=== PATIENT | male | born 1930 | race Caucasian/White ===

== ENCOUNTER 2020-01-14 15:04 | Inpatient (IN) | payer OTHER ==
[2020-01-14] VITALS (7 sets, daily range): BP systolic 100–125; BP diastolic 64–89
[~2020-01-14] VITALS: Ht 170.1 cm; Wt 54.0 kg
[2020-01-14 15:48] LABS: MEAN CELL VOLUME 77.6 fl (80.0-94.0); MEAN CORPUSCULAR HGB 24.1 pg (27.0-31.0); MEAN PLATELET VOLUME 9.5 fl (9.6-12.3); PLATELET COUNT AUTOMATED 429 10*3/uL (130-400); RED BLOOD COUNT 7.98 10*6/uL (4.50-5.90); RED CELL DISTRI WIDTH 24.5 % (0-14.5); WHITE BLOOD COUNT 22.9 10*3/uL (4.8-10.8)
[2020-01-14 15:51] LABS: HEMATOCRIT 61.9 % (42.0-52.0)
[2020-01-14 15:58] LABS: ACT PARTIAL THROMBO TIME 32.8 SECONDS (20.0-32.1); INTERNATIONAL NORM RATIO 1.6 (2.0-3.5)
[2020-01-14 16:04] LABS: ALKALINE PHOSPHATASE 106 U/L (45-117); BUN 11 mg/dl (7-24); CHLORIDE 106 mmol/L (98-107); LIPASE 25 U/L (73-393); POTASSIUM 4.3 mmol/L (3.5-5.1); SGOT/AST 14 IU/L (3-35); SGPT/ALT 14 U/L (12-78); SODIUM 137 mmol/L (136-145); TOTAL PROTEIN 7.1 gm/dL (6.4-8.2)
[2020-01-14 16:05] LABS: TROPONIN I < 0.015 ng/ml (<0.045)
[2020-01-14 16:11] LABS: ATYPICAL LYMPHS 1 % (0-0); BASOPHILS 2 % (0-1); PLATELET SUFFICIENCY NORMAL (NORMAL); TOTAL CELLS COUNTED 100 #CELLS
[2020-01-14 16:12] LABS: POLYCHROMASIA MODERATE
--- NOTE | 2020-01-14 16:22 | NUR ---
DAUGHTER STATES HE "WONT TAKE HIS THYROID OR BP MEDS SINCE JUNE"
[2020-01-14 17:14] LABS: BILIRUBIN 1+ (NEGATIVE); BLOOD 1+ (NEGATIVE); CLARITY SL CLOUDY (CLEAR); COLOR ORANGE (YELLOW); GLUCOSE NEGATIVE (NEGATIVE); KETONE TRACE (NEGATIVE); LEUKO ESTERASE NEGATIVE (NEGATIVE); NITRITE NEGATIVE (NEGATIVE)
[2020-01-14 17:20] LABS: BACTERIA 1+; EPITHELIAL CELLS 0-2
--- NOTE | 2020-01-14 19:02 | NUR ---
A 89, admitted to , under the services of JAYLENE Avery DO with a diagnosis of ASPIRATION PNEUMONIA SEVERE SEPSIS. Chief complaint is ASPIRATION PNEUMONIA AND SEVERE SEPSIS. Patient arrived via bed from [place]. Monitor applied. Initial assessment completed. Vital signs taken and recorded. JAYLENE AVERY DO notified of admission to the unit. Orders received. See assessment for past medical history, medications and allergies. Patient and/or family oriented to unit. [facility] Clothing/patient valuable form completed. MATT STEWARD
--- NOTE | 2020-01-14 20:42 | NUR ---
20:00 ATTEMPTED TO INSTRUCT PATIENT ON USE OF FLUTTER VALVE. PT UNABLE TO COMPREHEND HOW TO PERFORM TH TECHNIQUE. FLUTTER LEFT AT BEDSIDE. WILL ATTEMPT AT A LATER TIME. RN AWARE.
--- NOTE | 2020-01-14 21:01 | NUR ---
DR DOVER NOTIFIED OF CRITICAL KACTIC ACID OF 3.3. ALSO NOTIFIED OF HR AFOB ON THE MONITOR ANYWHERE FROM 100-150. STATES HE WILL BE UP TO SEE THE PATIENT.
--- NOTE | 2020-01-14 21:02 | NUR ---
SPOKE WITH DAUGHTER IN LAW, YOLIS, REGARDING HOME MEDICATIONS. DENIES THAT THE PATIENT HAS ANY HISTORY OF AFIB, OR MEDICATIONS FOR HR REGULATION OR BLOOD THINNERS. STATES THE ONLY MEDICATION HE HAS TAKEN IS SYNTHROID BUT HE HASN'T TAKE THAT FOR A YEAR AND A HALF. STATES THAT SHE FORGOT TO MENTION TO THE DOCTOR THAT HE HAS A HISTORY OF MESOTHELIOMA D/T WORKING IN THE [employer] & SKIN CANCER ON HIS FACE.
--- NOTE | 2020-01-14 22:28 | NUR ---
NEW PATIENT CONSULT CALLED INTO ANSWERING SERVICE FOR DR GODOY. AWAITING CALL BACK.
--- NOTE | 2020-01-14 22:33 | NUR ---
SPOKE WITH DR BARTLETT, STATES TO START CARDIZEM DRIP IF PATIENT MAINTAINS RATE OVER 120. HR 104 PER CM AT THIS TIME. STATES TO GIVE 10MG IV, THE 5MG/HR FOLLOWING THAT. WILL CONTINUE TO MONITOR PATIENT AND ADDRESS NEEDS THEY ARISE. WILL HOLD OFF ON CARDIZEM FOR NOW. WILL MONITOR HEART RATE.
[2020-01-15] VITALS (7 sets, daily range): BP systolic 110–138; BP diastolic 54–104
--- NOTE | 2020-01-15 01:56 | NUR ---
10 MG CARDIZEM ADMINISTERED, WILL MONITOR. HR IN 80'S PER CM AT THIS TIME.
--- NOTE | 2020-01-15 02:20 | NUR ---
24 HOUR CHART CHECK COMPLETE.
[2020-01-15 06:09] LABS: HEMATOCRIT 58.2 % (42.0-52.0); MEAN CELL VOLUME 77.4 fl (80.0-94.0); MEAN CORPUSCULAR HGB 23.7 pg (27.0-31.0); MEAN CORPUSCULAR HGB CONC 30.6 g/dl (33.0-37.0); PLATELET COUNT AUTOMATED 370 10*3/uL (130-400); RED BLOOD COUNT 7.52 10*6/uL (4.50-5.90); RED CELL DISTRI WIDTH 23.9 % (0-14.5); WHITE BLOOD COUNT 33.2 10*3/uL (4.8-10.8)
[2020-01-15 06:27] LABS: ALBUMIN 2.4 gm/dl (3.1-4.5); ALKALINE PHOSPHATASE 80 U/L (45-117); BUN 17 mg/dl (7-24); CHLORIDE 110 mmol/L (98-107); CHOLESTEROL 87 mg/dL (<200); CREATININE 1.16 mg/dL (0.70-1.30); FREE T4 0.94 ng/dl (0.76-1.46); HDL CHOLESTEROL 45 mg/dl (40-60); LDL CHOLESTEROL 32 mg/dL (9-159); POTASSIUM 4.3 mmol/L (3.5-5.1); SGOT/AST 15 IU/L (3-35); SGPT/ALT 15 U/L (12-78); SODIUM 140 mmol/L (136-145); TRIGLYCERIDES 52 mg/dl (<150); VLDL CHOLESTEROL 10 mg/dL (6-40)
[2020-01-15 06:36] LABS: PLATELET SUFFICIENCY NORMAL (NORMAL); POLYCHROMASIA SLIGHT; TOTAL CELLS COUNTED 100 #CELLS
[2020-01-15 06:37] LABS: MICROCYTOSIS SLIGHT
[2020-01-15 06:54] LABS: ACT PARTIAL THROMBO TIME 36.6 SECONDS (20.0-32.1); INTERNATIONAL NORM RATIO 1.8 (2.0-3.5)
[2020-01-15 07:39] LABS: VITAMIN D, 25-HYDROXY 18.9 ng/mL (30-100)
--- NOTE | 2020-01-15 07:58 | NUR ---
OT NOTE Occupational therapy order and nursing screen received. Will follow up with patient for completion of an OT evaluation. Leeann Mccarty, OTR/L
--- NOTE | 2020-01-15 07:58 | NUR ---
PHYSICAL THERAPY Screen and orders recieved, will follow. Thank you. Abraham Chester SPT Emilee Lindquist PT
--- NOTE | 2020-01-15 09:00 | NUR ---
PHYSICAL THERAPY Physical Therapy evaluation completed on 4th floor with full evaluation to follow. Recommend physical therapy per plan of care and SNF upon discharge. Thank you for this referral. Abraham Chester SPT Emilee Lindquist PT
--- NOTE | 2020-01-15 09:04 | NUR ---
SPEECH PATHOLOGY Orders for evaluation received and chart review completed. Clinician arrived in patient's room to attempt assessment however patient was found to be wheezing, confused and unable to follow commands. His nurse reported that his pulse ox was only in the 80's at this time and he was to be placed on oxygen. Due to current medical status, swallowing assessment was not able to be completed at this time. Will attempt evaluation at a later time. His nurse was informed and verbalized understanding and agreement. Thank you for this referral. KATELYN DELAROSA MSCCC-ELEVATOR WORKER
--- NOTE | 2020-01-15 09:05 | NUR ---
Occupational Therapy evaluation completed on four with full evaluation to follow. Recommend occupational therapy per plan of care and SNF upon discharge. Thank you for this referral. Leeann Mccarty OTR/L
[2020-01-15 09:15] LABS: RETICULOCYTE % 0.95 % (0.50-2.50)
--- NOTE | 2020-01-15 09:17 | NUR ---
TARA MERIDA [id number] Please refer to the physician's history and physical for past medical history, comorbid conditions, and allergies. Diagnosis: SEVERE SEPSIS,ASPIRATION PNEMONIA Ore Score: 10,HIGH RISK WOUND DESCRIPTIONS: Wound Number: 1 Location of the wound: left nares Type of wound: scab Thickness: Full Size: 0.5cm x 0.5cm x <0.1cm Tunneling: none Undermining: none Sinus Tract: none Presence of Exudate: none Amount: None Color: Brown Odor: None Periwound Skin Appearance: Erythema Wound edges: approximated Pain (associated with wound): denied at time of assessment How does patient state this happened? patient unsure how this happened. Wound Number: 2, 3 and 4 Location of the wound: left upper arm Thickness: Full Size: 4.1cm x 2.1cm x 0.1cm Tunneling: none Undermining: none Sinus Tract: none Presence of Exudate: Serous Amount: Light Color: Red, Brown Odor: None Periwound Skin Appearance: Erythema Wound edges: approximated Pain (associated with wound): denied at time of assessment How does patient state this happened? patient unsure how this happened. Wound Number: 5 Location of the wound: right distal arm Type of wound: scab Thickness: Full Size: 2.5cm x 0.8cm x <0.1cm Tunneling: none Undermining: none Sinus Tract: none Presence of Exudate:none Amount: None Color: Red, yellow, brown Odor: None Periwound Skin Appearance: Erythema Wound edges: approximated Pain (associated with wound): denied at time of assessment How does patient state this happened? patient unsure how this happened. Wound Number: 6 Location of the wound: right medial elbow Thickness: Full Size: 1.7cm x 1.2cm x 0.1cm Tunneling: none Undermining: none Sinus Tract: none Presence of Exudate: Serous Amount: Light Color: Red, brown, yellow Odor: None Periwound Skin Appearance: Erythema Wound edges: approximated Pain (associated with wound): denied at time of assessment How does patient state this happened? patient unsure how this happened. Wound Number: 7 Location of the wound: right outter elbow Thickness: Full Size: 0.8cm x 0.7cm x 0.1cm Tunneling: none Undermining: none Sinus Tract: none Presence of Exudate: Serous Amount: Light Color: Red, Brown Odor: None Periwound Skin Appearance: Erythema Wound edges: approximated Pain (associated with wound): denied at time of assessment How does patient state this happened? patient unsure how this happened Wound Number: 8 Location of the wound: coccyx Type of wound: stage 1 Thickness: Size: 7cm x 7cm x <0.1cm Tunneling: none Undermining: none Sinus Tract: none Presence of Exudate: none Amount: None Color: Red Odor: None Periwound Skin Appearance: Erythema Wound edges: closed Pain (associated with wound): denied at time of assessment How does patient state this happened? patient unsure how this happened. Surface the patient is resting on: Isoflex SKIN PREVENTION RECOMMENDATION: 1. Pressure redistribution support surface as appropriate 2. Elevate heels 3. Remove boots/TEDS every shift and reapply 4. Head of bed 30 degrees as tolerated 5. Assess nutrition and hydration 6. Manage moisture 7. Avoid the use of containment devices while in bed 8. Use absorptive products on surfaces limit layers of linens on bed 9. Turn and reposition every 1-2 hours in bed and every 1 hour in chair as tolerated 10. Weight shifts every 15 minutes while up in chair 11. Offloading with pillows or device to keep heels elevated off bed 12. Monitor skin at least every shift 13. Inspect under medical devices twice a day WOUND TREATMENT RECOMMENDATIONS: Full thickness guidelines to left upper arm, right arm distal, right medial elbow, right outter elbow: Cleanse with nss apply sureprep allow to dry and apply therahoney to wound bed and cover with optifoam gentle. Change every 2 days and prn soiling. Left nare apply sureprep and allow to dry and leave open to air. Stage 1 guidelines to coccyx: Cleanse with nss apply sureprep allow to dry and cover with optifoam gentle every 2 days and prn soiling. Heel raiser pro boots while in bed. Wheel chair cushion when out of bed.
--- NOTE | 2020-01-15 09:43 | NUR ---
DR. SPEAR AWARE OF CONSULT.
[2020-01-15 12:10] LABS: ABG BASE EXCESS -3.2 mmol/L (-2.0-2.0); ARTERIAL BLOOD GAS PH 7.417 (7.35-7.45)
--- NOTE | 2020-01-15 12:46 | NUR ---
FOUNDRY MELT SUPERVISOR REACHED OUT TO THE PATIENTS DAUGHTER IN LAW. PATIENTS DAUGHTER IN LAW WAS VERY FORTH COMING WITH ANSWERS TO ALL QUESTIONS THIS FOUNDRY MELT SUPERVISOR ASKED. PER DAUGHTER IN LAW THE LAST COUPLE OF WEEKS THE PATIENT HAS BEEN UNSTEADY ON HIS FEET. SHE STATED THAT THE PATIENT HAS FALLEN INTO THE KEEN AND RECIEVED BRUSING ON HIS ARMS. SHE STATED THEY WERE WALKING TOGETHER AND THE PATIENT STARTED TO FALL, SHE WENT TO GRAB HIM TO PREVENT HIM FROM FALLING AND HE RECEIVED SKIN TEARS ON HIS ONE ARM. THE DAUGHTER IN LAW STATED THE PATIENT DOES NOT HAVE A PCP AT THIS TIME. HE HAS NOT BEEN SEEN BY A PCP SINCE BEFORE DECEMBER 2018. THE PATIENTS DECEMBER 2018 AND THE PATIENT REFUSED TO TAKE HIS ONLY MEDICATION FOR HIS THYROID. THE DAUGHTER IN LAW STATED THE PATIENT HAS A SINGLE BED LOWERED TO THE GROUND TO PREVENT ROLLING OUT OF THE BED. SHE STATED THE PATIENT DOES WELL WITH GETTING UP AND OUT OF THE BED. HE DOES MAKE HIS OWN BED EVERY MORNING. THE DAUGHTER IN LAW STATED SHE DOES TRY TO GET THE PATIENT TO EAT 2 TO 3 TIMES A DAY, BUT HE HAS NOT BEEN WANTING TO EAT LATELY. THE DAUGHTER IN LAW STATED UPON THE PATIENTS RETURN HOME, THEY WOULD JUST BLEND HIS FOOD FOR HIM TO MAKE IT EASIER ON HIM. THE PATIENT DOES HAVE ACCESS TO A WALKER,CANE, WHEELCHAIR, AND SHOWER CHAIR. HOWEVER, THE PATIENT REFUSES TO USE ANY OF THEM. PER THE DAUGHTER IN LAW SHE DOES STAND OUT SIDE OF THE SHOWER AND WAITS FOR THE PATIENT TO FINISH BATHING TO PREVENT HIM FROM FALLING. THE DAUGHTER STATED SHE WAS HOPING TO GET THE PATIENT CONNECTED TO A PCP HER IN [place]. FOUNDRY MELT SUPERVISOR EXPLAINED THE [facility]. SHE WAS RECEPTIVE AND STATED IT WOULD BE FINE TO MAKE AN APPOINTMENT, SHE WOULD PREFER AFTERNOONS BUT WOULD MAKE ANYTHING WORK. FOUNDRY MELT SUPERVISOR ASKED IF THEY WOULD BE RECEPTIVE TO SNF VS HOME HEALTH, THE DAUGHTER IN LAW STATED [facility] WOULD BE FINE. FOUNDRY MELT SUPERVISOR NOTIFIED FEE CLERK REYMUNDO.
--- NOTE | 2020-01-15 12:52 | NUR ---
Dr. Gaston notified of wound care recommendtions.
--- NOTE | 2020-01-15 14:27 | NUR ---
SPEECH PATHOLOGY Evaluation attempted again this pm. Clinician consulted with patient's admitting nurse, who recommended to hold off on evalation of swallowing at this time due to patient's medical status. Will attempt again tomorrow as appropriate. Thank you for this referral. KATELYN DELAROSA MSCCC-RAIL SIGNAL MECHANIC
--- NOTE | 2020-01-15 20:20 | NUR ---
ASSUMED CARE OF PATIENT. PATIENT IS CONFUSED AND ORIENTED TO SELF. ASSESSMENT IS COMPLETE WITH NO S/S OF DISTRESS NOTED AT THIS TIME. PATIENT IN GERICHAIR. CALL LIGHT IS WITHIN REACH. WILL CONTINUE TO MONITOR, SEE INTERVENTIONS.
--- NOTE | 2020-01-15 22:30 | NUR ---
PATIENT ASSISTED FROM GERICHAIR TO BED. BED IS LOW, LOCKED, ALARMED, AND CALL LIGHT IS WITHIN REACH. WILL CONTNIUE TO MONITOR.
[2020-01-16] VITALS: BP 159/81
--- NOTE | 2020-01-16 | NUR ---
ATTEMPTED SUCTION ON PATIENT, THICK GREEN/WHITE EXPECTORANT OBTAINED FROM SUCTIONING. BED IS LOW, LOCKED, ALARMED, AND CALL LIGHT IS WITHIN REACH. WILL CONTINUE TO MONITOR.
--- NOTE | 2020-01-16 01:35 | NUR ---
PATIENT PLACED IN GERICHAIR AT THIS TIME. CALL LIGHT IS WITHIN REACH.
--- NOTE | 2020-01-16 03:10 | NUR ---
PATIENT ASSISTED BACK TO BED. BED IS LOW, LOCKED, ALARMED, AND CALL LIGHT IS WITHIN REACH. WILL COTNIUE TO MONITOR.
--- NOTE | 2020-01-16 03:11 | NUR ---
BED BATH PROVIDED. PATIENT TOLERATED WELL. BED IS LOW, LOCKED, ALARMED, AND CALL LIGHT IS WITHIN REACH.
--- NOTE | 2020-01-16 03:28 | NUR ---
CHART CHECK COMPLETE.
[2020-01-16 06:00] LABS: MEAN CELL VOLUME 77.8 fl (80.0-94.0); MEAN CORPUSCULAR HGB CONC 30.9 g/dl (33.0-37.0); PLATELET COUNT AUTOMATED 424 10*3/uL (130-400); RED BLOOD COUNT 7.78 10*6/uL (4.50-5.90); RED CELL DISTRI WIDTH 24.4 % (0-14.5); WHITE BLOOD COUNT 31.6 10*3/uL (4.8-10.8)
[2020-01-16 06:03] LABS: HEMATOCRIT 60.5 % (42.0-52.0)
--- NOTE | 2020-01-16 06:05 | NUR ---
DR. DOVER NOTIFIED OF PT'S CRITICAL HCT OF 60.5
[2020-01-16 06:13] LABS: ALBUMIN 2.8 gm/dl (3.1-4.5); CREATININE 1.64 mg/dL (0.70-1.30); POTASSIUM 3.9 mmol/L (3.5-5.1); TOTAL PROTEIN 6.7 gm/dL (6.4-8.2)
[2020-01-16 06:34] LABS: INTERNATIONAL NORM RATIO 1.6 (2.0-3.5)
[2020-01-16 07:01] LABS: MICROCYTOSIS SLIGHT; PLATELET SUFFICIENCY HIGH (NORMAL); POLYCHROMASIA SLIGHT; TOTAL CELLS COUNTED 100 #CELLS
--- NOTE | 2020-01-16 07:15 | NUR ---
ASSUMED CARE OF PATIENT AT THIS TIME. PATIENT PLEASANTLY CONFUSED. NO S/S OF DISCOMFORT NOTED. CALL LIGHT IN REACH. BED ALARM ON. BED IN LOWEST POSITIONS, WHEELLOCKS ON.
[2020-01-16 08:00] VITALS: BP 116/68
--- NOTE | 2020-01-16 08:33 | NUR ---
SPEECH PATHOLOGY Clinical swallowing evaluation completed as per orders. Medical history includes dementia, dysphagia, sepsis. Patient was alert but significantly confused for assessment. He was unable to follow any commands. He verbalized but was only understood when he stated "yea," which was his response to any question given. He attempted to gesture and comment spontaneously but was not understood. Patient was assessed with puree and honey thick liquids. Results revealed severe oropharyngeal dysphagia. Patient displayed severe difficulty propelling material and initiating a swallow. His swallow was uncoordinated and followed by throat clearing. Recommend continued NPO. Follow up therapy will be conducted focusing on indirect tasks to attempt to improve swallowing abilities. Results and recommendations were shared with patient's nurse who verbalized understanding. [facility]er to [facility] for further information. Thank you for this referral. KATELYN DELAROSA MSCCC-CLAIMS CONSULTANT
--- NOTE | 2020-01-16 09:00 | NUR ---
patient will return home with family when discharged, family would like [facility] to follow, case management will notifiy [facility] when patient is ready for discharge
--- NOTE | 2020-01-16 09:30 | NUR ---
PHYSICAL THERAPY Patient seen this am 1;1 for therapy visit and was resting supine in bed upon therapist arrival. Patient identified by name / and presented with increased confusion. Patient was pleasant, however repeatedly mumbled 1-2 word phrases to all therapist commands. Patient also presented with continuos O2-4L via NC and transfers supine to sit EOB with MOD A, tolerating static EOB sit x several minutes, with initial retrograde posture. Patient needed multiple v/c's throughout treatment to improve overal safety / performance, then transfers sit to stand CAN TESTER/MOD A x 2. Patient could only maintain static stand < 15 seconds and was able to take 1-2 side steps to L side for pre bed positioning. Patient returned to supine in bed and remained with call light, bed side rails elevated and bed alarm for safety. Will continue per POC as tolerated, total treatment time 13 minutes. Quentin Hardy, MANAGER ONCOLOGY
--- NOTE | 2020-01-16 09:35 | NUR ---
OT NOTE Pt was seen this A.M. 1:1 for 12 minute OT session. Upon arrival pt was supine in bed. Pt identified by name and on wristband due to pt stating "yeah" for every response. Pt presented to therapy with continuous 4L-O2 via NC which he remained on throughout the entire session. Pt transferred supine to sit EOB with modA X 2. Upon inital rise to the EOB pt presented with severe retrograde LOB that required maxA to correct. After sitting EOB for aprox 2 minutes pt was able to self correct and sit EOB with CGA for safety. Sit to stand completed from bed level with modA X 2 SYSTEM TECHNOLOGIST. Challenged pt's static standing tolerance needed for increased I and enhanced safety, pt was able to tolerate aprox 45 seconds at a time before sitting due to fatigue. Pt then trasferred back into bed sit to supine with modA X 2 where he was left with call light in hand, tray table in place, and bed alarm activated for safety. Throughout entire session pt presented with aprox 50% command follow. Continue with rec D/C plan to SNF. ODILIA Landa/Phuong
--- NOTE | 2020-01-16 09:50 | NUR ---
NOTIFIED OF LACTIC ACID OF 2.2.
--- NOTE | 2020-01-16 10:00 | NUR ---
FUAD FALLON CALLED AND EXPLAINED THERAPEUTIC PHLEBOTOMY TO HER AND REASON THAT PATIENT NEEDS THIS DONE. SHE GAVE CONCSENT FOR THERAPEUTIC PHLEBOTOMY FOR THIS PATIENT.
[2020-01-16 10:11] VITALS: BP 116/68
[2020-01-16 10:50] VITALS: BP 109/65
--- NOTE | 2020-01-16 11:15 | NUR ---
SKI INSTRUCTOR FAXED [facility]/PALLIATIVE CARE ORDER TO FITO @ [phone] PHONE:[phone].
--- NOTE | 2020-01-16 14:14 | NUR ---
Nutritional Support Services Note: Pt with dx of severe sepsis, aspiration pneumonia. Ht.5'7 Wt.119# IBW 138-158#. He is NPO at this time with speech therapy evaluation for patient to remain NPO due to unsafe swallowing. Will follow as needed. Will monitor for nutrition intervention. Pt will need some form of nutritional support. Susanne Alanis Rdn Ld
--- NOTE | 2020-01-16 14:52 | NUR ---
OFFICE NOTIFIED OF NEW CONSULT.
--- NOTE | 2020-01-16 15:46 | NUR ---
PHYSICAL THERAPY CO-SIGN I approve of the Physical Therapy notes written above. REYMUNDO LONDONO PT, DPT
[2020-01-16 16:00] VITALS: BP 128/62
--- NOTE | 2020-01-16 16:02 | NUR ---
OCCUPATIONAL THERAPY CO-SIGN I approve of the Occupational Therapy notes written above. SHAE VALDEZ, OTR/L
--- NOTE | 2020-01-16 16:55 | NUR ---
NOTIFIED OF LACTIC ACID OF 3.6.
[2020-01-16 20:00] VITALS: BP 105/68
--- NOTE | 2020-01-16 20:03 | NUR ---
ASSUMED CARE OF PATIENT. PATIENT IS CONFUSED AND ORIENTED TO SELF. ASSESSMENT IS COMPLETE WITH NO S/S OF DISTRESS NOTED AT THIS TIME. BED IS LOW, LOCKED, ALARMED, AND CALL LIGHT IS WITHIN REACH. WILL CONTINUE TO MONITOR, SEE INTERVENTIONS.
--- NOTE | 2020-01-16 22:34 | NUR ---
24 HR chart check completed.
[2020-01-17] VITALS: BP 105/71
--- NOTE | 2020-01-17 | NUR ---
RESTING IN BED; 02 INTACT AT 4 LITERS. LUNGS WITH RHONCHI; PT. VERY CONGESTED. BED IN LOW POSITION; BED ALARM ON. CALL LIGHT WITHIN REACH.
--- NOTE | 2020-01-17 05:57 | NUR ---
PRICING LEAD CALLED OUT & STATED THAT LEONORA DIANA STATED THAT SOMEONE NEEDED TO GO INTO 408 BECAUSE HIS HEART RATE WAS IN THE 30'S.
--- NOTE | 2020-01-17 05:58 | NUR ---
R[facility] RESPONSE CALLED.
[2020-01-17 06:05] LABS: HEMATOCRIT 55.6 % (42.0-52.0); MEAN CELL VOLUME 78.9 fl (80.0-94.0); MEAN CORPUSCULAR HGB 24.5 pg (27.0-31.0); MEAN CORPUSCULAR HGB CONC 31.1 g/dl (33.0-37.0); MEAN PLATELET VOLUME 10.4 fl (9.6-12.3); PLATELET COUNT AUTOMATED 439 10*3/uL (130-400); RED BLOOD COUNT 7.05 10*6/uL (4.50-5.90); RED CELL DISTRI WIDTH 24.6 % (0-14.5); WHITE BLOOD COUNT 29.3 10*3/uL (4.8-10.8)
--- NOTE | 2020-01-17 06:05 | NUR ---
ONE DOSE OF EPI GIVEN.
--- NOTE | 2020-01-17 06:08 | NUR ---
NO RESPIRATIONS; NO HEARTBEAT. PRONOUNCED BY DR. MARIE.
--- NOTE | 2020-01-17 06:09 | NUR ---
CALLED AND SPOKE WITH NEXT OF KIN IN REGARDS TO PATIENT CODE STATUS. ORDERED TO STOP EVERYTHING. MESSAGE RELAYED TO DR. MARIE
[2020-01-17 06:19] LABS: CREATININE 1.63 mg/dL (0.70-1.30); POTASSIUM 4.1 mmol/L (3.5-5.1)
--- NOTE | 2020-01-17 06:46 | NUR ---
SUZY AT ONE CALL NOTIFIED OF PT'S . PT IS A RULE OUT D/T SEPSIS. #[id number]
[2020-01-17 06:49] LABS: BASOPHILS 1 % (0-1); PLATELET SUFFICIENCY HIGH (NORMAL); TOTAL CELLS COUNTED 100 #CELLS
--- NOTE | 2020-01-17 07:43 | NUR ---
CALLED ESTRELLA ZEPEDA AT [facility] IN [place] TO NOTIFY HIM OF PATIENT'S PASSING AWAY. CALLED PER DAUGHTER FREDDIE. MR. ZEPEDA STATED THAT SOMEONE WOULD BE ON THE WAY.
--- NOTE | 2020-01-19 07:49 | NUR ---
DYNAMITE PACKING MACHINE FEEDER NOTIFIED [facility] THAT THE PATIENT DISCHARGED OVER THE WEEKEND.
== END 2020-01-17 06:08 | disposition expired | DRG 871 ==
LOC: ED 15:04 → 4E 17:01 → EDHOLD 17:01 → 4E 17:01
PROVIDERS: Emergency Medicine; Hospitalist; Internal Medicine; Internal Medicine Critical Care Medicine; ADMIT Internal Medicine
DX: A41.9 Sepsis, unspecified organism (principal); J69.0 Pneumonitis due to inhalation of food and vomit; N17.0 Acute kidney failure with tubular necrosis; G93.41 Metabolic encephalopathy; E87.2 Acidosis; I42.9 Cardiomyopathy, unspecified; J96.10 Chronic respiratory failure, unspecified whether with hypoxia or hypercapnia; R80.9 Proteinuria, unspecified; R31.9 Hematuria, unspecified; D75.1 Secondary polycythemia; D47.3 Essential (hemorrhagic) thrombocythemia; E88.09 Other disorders of plasma-protein metabolism, not elsewhere classified; F03.90 Unspecified dementia, unspecified severity, without behavioral disturbance, psychotic disturbance, mood disturbance, and anxiety; R65.20 Severe sepsis without septic shock; E03.9 Hypothyroidism, unspecified; R73.9 Hyperglycemia, unspecified; E80.6 Other disorders of bilirubin metabolism; I25.10 Atherosclerotic heart disease of native coronary artery without angina pectoris; I48.91 Unspecified atrial fibrillation; R59.1 Generalized enlarged lymph nodes; Z20.828 Contact with and (suspected) exposure to other viral communicable diseases; Z66 Do not resuscitate; Z51.5 Encounter for palliative care; I46.9 Cardiac arrest, cause unspecified